=== PATIENT | male | born 1985 | race Caucasian/White ===

== ENCOUNTER 2019-07-12 16:06 | Emergency (ER) | payer OTHER, SELFPAY ==
[2019-07-12] VITALS (22 sets, daily range): BP systolic 114–138; BP diastolic 50–90; PULSE 87–107; RESP 4–28; TEMP 36.4; O2SAT 93–98
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
[2019-07-12] MEDS: Ondansetron 4 MG/2 ML VIAL IVP (16:41)
[2019-07-12] MEDS: Normal Saline 1,000 ML 1000 ML IV (16:41)
[2019-07-12] MEDS: MORPHine 10 MG/ML VIAL 2 MG IVP (16:42)
[2019-07-12 16:47] LABS: Abs Immature Grans 0.04 k/cumm (0.0-0.09); Absolute Basophil Count 0.02 k/cumm (0.0-0.2); Absolute Eosinophil Count 0.07 k/cumm (0.0-0.7); Absolute Lymphocyte Count 1.05 k/cumm (1.2-3.4); Absolute Monocyte Count 0.72 k/cumm (0.11-0.7); Absolute Neutrophil Count 8.05 k/cumm (1.2-6.7); Basophils % 0.2; Eosinophils % 0.7; HCT 45.7 % (40.0-50.0); HGB 16.8 g/dL (13.5-17.5); Immature Grans % 0.4; Lymphocytes % 10.6; Mean Corp. HGB Concentration 36.8 g/dL (32.0-36.0); Mean Corpuscular Hemoglobin 31.7 pg (27.0-33.0); Mean Corpuscular Volume 86.2 fL (80-95); Mean Platelet Volume 10.9 fL (8.0-11.0); Monocytes % 7.2; Neutrophils % 80.9; Platelet Count 200 x1000/uL (130-400); RBC Distribution Width 12.7 % (11.8-14.1); White Blood Cell Count 9.95 k/cumm (4.4-10.8)
[2019-07-12 16:59] LABS: ALT 35 U/L (16-63); AST 29 U/L (15-37); Albumin 4.5 g/dL (3.4-5.0); Alkaline Phosphatase 86 U/L (46-116); BUN 16 mg/dL (7-18); Bilirubin, Total 0.6 mg/dL (0.2-1.0); CREATININE 1.19 mg/dL (0.70-1.30); Calcium 9.1 mg/dL (8.5-10.1); Chloride 104 mmol/L (98-107); Glucose 90 mg/dL (70-100); Sodium 143 mmol/L (136-145); Total Protein 7.4 g/dL (6.4-8.2)
[2019-07-12] MEDS: Omnipaque 350 MG/ML 100 ML BTL IJ (16:59)
[2019-07-12] MEDS: Normal Saline Flush 10 ML SYR IVP (17:00)
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
[2019-07-12] MEDS: Lidocaine 5% Patch 1 PATCH TP (17:59)
== END 2019-07-12 18:15 | disposition home or self-care (01) ==
PROVIDERS: Emergency Provider Physician Assistant
DX: R07.81 Pleurodynia (principal); R51 Headache; V17.0XXA Pedal cycle driver injured in collision with fixed or stationary object in nontraffic accident, initial encounter
CPT/HCPCS: 36415; 74177; 80053; 96361; 96374; 99285; 70450; 71260; 72125; 85025; 99284; J2270; J2405; J3490